=== PATIENT | female | born 1950 | race Caucasian/White ===

== ENCOUNTER 2017-03-16 20:32 | Emergency (ER) | payer MEDICARE, BC ==
[~2017-03-16] VITALS: Ht 165.1 cm; Wt 65.8 kg
[~2017-03-16 20:32] MED LIST: ALEN70TA3 PO
--- NOTE | 2017-03-16 21:05 | NUR ---
pt ambuatory to er bed 09. c/o r wrist pain. noted one puncture wound post dog bite 4 hours ago. dog is patients pet and states fully vaccinated. no active bleeding. no obvious deformity. awaiting md saleh.
--- NOTE | 2017-03-16 21:08 | NUR ---
damien collar baster jumpbasting at bedside for eval.
[2017-03-16] MEDS ORDERED: HYDROCODONE/APAP 10/325MG 1 EA TABLET ONE (21:19)
[2017-03-16] MEDS ORDERED: IBUPROFEN 600 MG TABLET PO ONE ×2 (21:19→21:30)
--- NOTE | 2017-03-16 21:19 | NUR ---
radiology at bedside for r wrist xray.
[2017-03-16] MEDS ORDERED: TDAP [DIPH/PERTUSSIS/TET] 0.5 ML VIAL IM ONE ×2 (21:20→21:30)
[2017-03-16] MEDS ORDERED: HYDROCODONE/APAP 10/325MG 1 EA TABLET PO ONE (21:30)
[2017-03-16] MEDS ORDERED: AMOX/CLAVULANATE 875 MG TABLET ONE (21:49)
[2017-03-16] MEDS ORDERED: AMOX/CLAVULANATE 875 MG TABLET PO ONE (22:00)
--- NOTE | 2017-03-16 22:02 | NUR ---
wound care and wrist splint provided. pt is d/c'd in stable condition.
[2017-03-16 22:03] VITALS: BP 121/76
== END 2017-03-16 22:04 | disposition home or self-care (01) ==
LOC: ER 20:32
DX: S61.551A Open bite of right wrist, initial encounter (principal); M81.0 Age-related osteoporosis without current pathological fracture; Z90.49 Acquired absence of other specified parts of digestive tract; Z98.890 Other specified postprocedural states; Z87.440 Personal history of urinary (tract) infections; W54.0XXA Bitten by dog, initial encounter; Y93.89 Activity, other specified; Y92.89 Other specified places as the place of occurrence of the external cause; Y99.9 Unspecified external cause status
CPT/HCPCS: 73110; 90715; A4606; A6402; Z7610

== ENCOUNTER 2017-03-18 07:05 | Inpatient (IN) | payer MEDICARE, BC ==
[~2017-03-18] VITALS: Ht 165.1 cm; Wt 65.8 kg
--- NOTE | 2017-03-18 07:25 | NUR ---
PT REC'D TO ER C/O DOG BITE WAS SEEN 2 DSYS AGO . NOW HAS FEVER AND SWELLING TO RT HAND TOOK A NORCO AND ADVIL AWAITING EVALUATION BY ER PROVIDER.
--- NOTE | 2017-03-18 07:37 | NUR ---
IV STARTED LEFT AC 20G IVP LABS DRAWN SENT TO LAB
--- NOTE | 2017-03-18 07:45 | NUR ---
called nursing sup for bed
[2017-03-18 07:55] LABS: BASOPHILS # (AUTO) 0.1 /CMM (0.0-0.2); BASOPHILS % (AUTO) 0.7 % (0.0-2.0); EOSINOPHILS # (AUTO) 0.1 /CMM (0.0-0.7); EOSINOPHILS % (AUTO) 0.7 % (0.0-6.0); HEMATOCRIT 35 % (33-45); LYMPHOCYTES % (AUTO) 23.7 % (20.0-44.0); MEAN CORPUSCULAR HEMOGLOBIN 32 PG (26.0-33.0); MEAN CORPUSCULAR HGB CONC 35 g/dl (31.0-36.0); MEAN CORPUSCULAR VOLUME 91 fL (82-100); MONOCYTES # (AUTO) 0.6 /CMM (0.1-1.30); MONOCYTES % (AUTO) 7.7 % (2.0-12.0); NEUTROPHILS # (AUTO) 5.4 /CMM (1.8-8.9); NEUTROPHILS % (AUTO) 67.2 % (43.0-81.0); PLATELET COUNT (AUTO) 252 /CMM (150-450); RDW COEFFICIENT OF VARIATION 13.2 (11.5-15.0); RED BLOOD CELL COUNT(AUTO) 3.79 MIL/uL (4.0-5.2); WHITE BLOOD COUNT (AUTO) 8.2 K/uL (4.3-11.0)
[2017-03-18 08:00] VITALS: BP 104/71
[2017-03-18] MEDS ORDERED: IV SET PRIMARY PUMP SET 1 EA INFUS.SET MC ONE ×2 (08:00→11:03)
[2017-03-18] MEDS ORDERED: CLINDAMYCIN 600 MG in IV D5W 100 ML IV ONE (08:00)
[2017-03-18 08:09] LABS: CALCIUM, SERUM 8.8 mg/dL (8.5-10.1); CREATININE 0.8 mg/dL (0.6-1.3); POTASSIUM 3.9 mmol/L (3.5-5.1)
--- NOTE | 2017-03-18 08:10 | NUR ---
PT GIVEN MEDS PER MD ORDER PENDING ADMIT
--- NOTE | 2017-03-18 08:15 | NUR ---
PANEL CALL HAS BEEN PAGED.
--- NOTE | 2017-03-18 08:43 | NUR ---
REPORT CALLED TO FLOOR VSS STABLE FOR TRANSER
[2017-03-18 09:00] VITALS: BP 106/66
--- NOTE | 2017-03-18 09:00 | NUR ---
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 PATIENT IS A/O X4. AMBULATORY, SKIN INTACT. RIGHT HAND SWELLING WITH REDNESS AND WARMTH TO TOUCH DUE TO DOG BITE. NO C/O PAIN AT THIS TIME. V/S TAKEN AND RECORDED. CALL LIGHT WITHIN REACH. WILL CONT TO MONITOR.
[2017-03-18] MEDS ORDERED: ONDANSETRON HCL/PF 4 MG/2 ML VIAL IVP PRN (10:00)
[2017-03-18] MEDS ORDERED: ALENDRONATE 70 MG TABLET PO SCH ×2 (10:00→13:48)
[2017-03-18] MEDS ORDERED: ACETAMINOPHEN 325 MG TABLET PO PRN (10:00)
[2017-03-18] MEDS ORDERED: ZOLPIDEM TARTRATE 5 MG TABLET PO PRN (10:00)
[2017-03-18] MEDS ORDERED: Z GUARD REMEDY 2 OZ OINT TP PRN (10:00)
[2017-03-18] MEDS ORDERED: MAG HYDROX/AL HYDROX/SIMETH 30 ML UDC PO PRN (10:00)
[2017-03-18] MEDS ORDERED: MAGNESIUM HYDROXIDE 30 ML UDC PO PRN (10:00)
[2017-03-18] MEDS: CLINDAMYCIN 900 MG in IV D5W 50 ML IV SCH ×2 (12:58→20:51)
[2017-03-18] MEDS ORDERED: CLINDAMYCIN IV RTU IN D5W 900 MG/50 ML PIGGYBACK IV SCH (13:00)
[2017-03-18] MEDS: HYDROCODONE/APAP 5/325MG 1 EACH TABLET PO PRN (13:07)
[2017-03-18 16:00] VITALS: BP 100/65
[2017-03-18 17:21] VITALS: BP 100/65
--- NOTE | 2017-03-18 18:25 | NUR ---
MS RN CLOSING NOTES PATIENT IN BED, NOT IN DISTRESS. ON IV ANTIBIOTIC TREATMENT WITH NO ADVERSE REACTION NOTED, AFEBRILE. NO C/O PAIN AT THIS TIME. CALL LIGHT WITHIN REACH. WILL ENDORSE TO GLUE BONE CRUSHER RN FOR CONTINUITY OF CARE.
[2017-03-18 20:00] VITALS: BP 102/78
[2017-03-18] MEDS ORDERED: IV NS 0.9% 250 ML IV ONE (20:50)
[2017-03-18] MEDS ORDERED: SECONDARY IV SET 1 EA INFUS.SET MC ONE (20:50)
[2017-03-19] MEDS: HYDROCODONE/APAP 5/325MG 1 EACH TABLET PO PRN (01:10)
--- NOTE | 2017-03-19 01:10 | NUR ---
NORCO 5-325 GIVEN ORDERED FOR C/O R HAND/ WRIST PAIN. WILL CONT TO MONITOR
[2017-03-19] MEDS: CLINDAMYCIN 900 MG in IV D5W 50 ML IV SCH (05:10)
--- NOTE | 2017-03-19 06:24 | NUR ---
RN NOTE; PT IN BED AWAKE AND ALERT. BREATHING EVENLY. NAD. W/ LESS EDEMA AND SWELLING ON THE RIGHT HAND/ WRIST COMPARE TO LAST NIGHT. AFEBRILE. NO C./O PAIN AT THIS TIME . WILL CONT TO MONITOR AND WILL ENDORSE TO AM SHIFT FOR MICAELA.
[2017-03-19 06:42] LABS: BASOPHILS % (AUTO) 0.3 % (0.0-2.0); EOSINOPHILS # (AUTO) 0.1 /CMM (0.0-0.7); EOSINOPHILS % (AUTO) 1.1 % (0.0-6.0); HEMATOCRIT 34 % (33-45); HEMOGLOBIN 11.8 g/dL (11.5-14.8); LYMPHOCYTES # (AUTO) 2.5 /CMM (0.8-4.8); LYMPHOCYTES % (AUTO) 35.6 % (20.0-44.0); MEAN CORPUSCULAR HEMOGLOBIN 32 PG (26.0-33.0); MEAN CORPUSCULAR HGB CONC 35 g/dl (31.0-36.0); MEAN CORPUSCULAR VOLUME 91 fL (82-100); MONOCYTES # (AUTO) 0.5 /CMM (0.1-1.30); MONOCYTES % (AUTO) 6.8 % (2.0-12.0); NEUTROPHILS # (AUTO) 3.9 /CMM (1.8-8.9); NEUTROPHILS % (AUTO) 56.2 % (43.0-81.0); PLATELET COUNT (AUTO) 247 /CMM (150-450); RDW COEFFICIENT OF VARIATION 13.4 (11.5-15.0); RED BLOOD CELL COUNT(AUTO) 3.75 MIL/uL (4.0-5.2)
[2017-03-19 06:53] LABS: CALCIUM, SERUM 8.7 mg/dL (8.5-10.1); CREATININE 0.6 mg/dL (0.6-1.3); MAGNESIUM 2.1 mg/dL (1.8-2.4); PHOSPHORUS 4.2 mg/dL (2.5-4.9); POTASSIUM 4.2 mmol/L (3.5-5.1)
--- NOTE | 2017-03-19 07:00 | NUR ---
MS RN NOTES RECEIVED PATIENT IN BED, AWAKE, A/O X4. LESS SWELLING, REDNESS AND LANDSCAPE ARTIST THE RIGHT HAND COMPARE FROM YESTERDAY. NO C/O PAIN AT THIS TIME. CALL LIGHT WITHIN REACH. WILL CONT TO MONITOR.
[2017-03-19] MEDS ORDERED: ALENDRONATE 70 MG TABLET PO SCH (07:30)
[2017-03-19 08:00] VITALS: BP 109/68
[2017-03-19] MEDS ORDERED: CLIN300C97 PO (10:49)
--- NOTE | 2017-03-19 11:04 | NUR ---
PATIENT IS SEEN BY DR. PALMER TODAY. PATIENT TO BE DISCHARGED HOME TODAY.
--- NOTE | 2017-03-19 12:00 | NUR ---
MS RN DISCHARGED PATIENT HAS BEEN CLEARED FOR DISCHARGED HOME BY . SKIN INTACT. DISCHARGE INSTRUCTION GIVEN TO THE PATIENT, VERBALIZED UNDERSTANDING. BELONGINGS CHECKED, PRESCRIPTION GIVEN THE PATIENT UPON DC. IV IN LEFT AC REMOVED, GAUZE APPLIED, NO BLEEDING NOTED. PATIENT LEFT HOSP IN STABLE CONDITION VIA PRIVATE, ACCOMPANIED BY HER FRIEND.
== END 2017-03-19 13:00 | disposition home or self-care (01) | DRG 603 ==
LOC: ER 07:05 → MEDSG2 08:26
PROVIDERS: ADMIT Family Medicine; ATTEND Family Medicine
DX: L03.113 Cellulitis of right upper limb (principal); B96.89 Other specified bacterial agents as the cause of diseases classified elsewhere; W54.0XXA Bitten by dog, initial encounter; S61.539A Puncture wound without foreign body of unspecified wrist, initial encounter; M81.0 Age-related osteoporosis without current pathological fracture
CPT/HCPCS: 36415; 73110; 80048-TC; 80061-TC; 83735-TC; 84100-TC; 85025-TC; 86140-TC; 87081-TC; A4606; J3490; J7050; J7060; Z7610